=== PATIENT | male | born 1945 | race Caucasian/White ===

== ENCOUNTER 2016-04-16 06:23 | Observation (INO) | payer OTHER, MEDICARE ==
[~2016-04-16] VITALS: Ht 182.9 cm; Wt 110.0 kg
[~2016-04-16 06:23] MED LIST: AMBI10TA PO; BUPR150T3 PO; GABA600T PO; LAMO100 PO; LISI20 PO; METF500 PO; NOVO7030P2 SQ; SERT100 PO; ST JTAB PO; ZOCO40TA PO
[2016-04-16 06:36] VITALS: BP 122/54; PULSE 70; RESP 16; TEMP 98.2; O2SAT 96
[2016-04-16] MEDS ORDERED: SODIUM CHLOR 0.9% 1000 ML INJ 1,000 ML IV ONE (06:43)
[2016-04-16] MEDS ORDERED: SODIUM CHLORIDE 0.9% FLUSH 5 ML FLUSH IVF PRN (06:45)
[2016-04-16] MEDS ORDERED: ASPI81CH CHEW (06:48)
[2016-04-16] MEDS ORDERED: LAMI200T PO (06:48)
[2016-04-16] MEDS ORDERED: SERT-129 PO (06:48)
[2016-04-16] MEDS ORDERED: METF500T PO (06:48)
[2016-04-16] MEDS ORDERED: GABA300C5 PO (06:48)
[2016-04-16] MEDS ORDERED: NIAC500T18 PO (06:48)
[2016-04-16] MEDS ORDERED: SIMV40TA PO (06:48)
[2016-04-16] MEDS ORDERED: LISI-515 PO (06:48)
[2016-04-16] MEDS ORDERED: CHRO1TAB PO (06:48)
[2016-04-16] MEDS ORDERED: VITA60003 PO (06:48)
--- NOTE | 2016-04-16 06:57 | PD ---
HPI Chief Complaint: Syncope/Near-Syncope Time Seen by Provider: 06:41 Travel History International Travel<30 days: No Contact w/Intl Traveler<30days: No Traveled to known affect area: No History of Present Illness HPI The patient is a 70 year old male who presents to the [facility] emergency department with a history of reported syncopal event that occurred prior to arrival. The patient reports that he got up his dog woke him to go out. He reports that he felt well and took the dog out, however on the way back in he began to feel lightheaded, nauseated, and dizzy. The patient reports that he was able to get inside and charted to look at his cell phone to make a call, however he was not able to focus on the phone. He reports that at some point he ended up on the ground and vomited. He does not recall vomiting or getting onto the ground. He denies having any chest pain or shortness of breath. Ambulance services were called and the patient was noted to be cool, pale, and diaphoretic on their arrival. His initial blood pressure was 80s over 50s. His initial blood sugar was 157. The patient had IV access obtained and the patient was started on normal saline a 500 mL bolus was given. The patient's blood pressure came up into the low 100s and the patient reported feeling improved. On arrival, the patient reports feeling well. He denies having any chest pain or shortness of breath. The patient denies any recent history of fevers, cough, congestion, neck pain, chest pain, shortness of breath, abdominal pain, diarrhea, urinary symptoms, or neurologic symptoms. [facility] Past Medical History Narrative Medical The patient's past medical history is significant for diabetes mellitus-insulin- dependent, history of tobacco abuse, history of peripheral arterial disease, hyperlipidemia, benign prostatic hypertrophy, posttraumatic stress disorder, depression, anxiety, diabetic neuropathy, history of a heart valve abnormality that is being monitored by a manager mechanical maintenance. The patient receives his primary care through the [facility]. Cancer: No Diabetes: Yes Patient Takes Glucophage: Yes Hepatitis: No Hiatal Hernia: No Hypertension: Yes Medical other: Yes (BPH) Thyroid Disease: No Tetanus Vaccination: < 5 Years Influenza Vaccination: Yes Past Surgical History Narrative Surgical The patient's past surgical history is unremarkable. Eye Surgery: Yes Oral Surgery: Yes (T&A) Pacemaker: No Social History Alcohol Use: Yes Tobacco Use: Yes (one pack per day) Substance Use: No Allergies-Medications (Allergen,Severity, Reaction): Coded Allergies: No Known Allergies (Unverified , 04/16/16) Reported Meds & Prescriptions Reported Meds & Active Scripts Active Reported Simvastatin 40 Mg Tab 40 Mg PO HS Niacin (Niacinamide) 500 Mg Tab 1 Tab PO DAILY Vitamin E (Vitamin E (Topical)) 100 Unit/Gm Cre 400 Units PO DAILY Chromium 1,000 Mcg Tab 1 Tab PO DAILY Aspirin 81 Mg Chew 81 Mg CHEW DAILY Lisinopril 20 Mg Tab 20 Mg PO DAILY Sertraline (Sertraline HCl) 100 Mg Tab 100 Mg PO DAILY Lamictal (Lamotrigine) 200 Mg Tab 500 Mg PO DAILY Gabapentin 300 Mg Cap 300 Mg PO TID Metformin (Metformin HCl) 500 Mg Tab 500 Mg PO BIDPC With meals Review of Systems Except as stated in HPI: all other systems reviewed are Neg General / Constitutional: No: Fever Eyes: No: Visual changes HENT: No: Headaches Cardiovascular: Positive: Diaphoresis, Syncope, No: Chest Pain or Discomfort Respiratory: No: Shortness of Breath Gastrointestinal: Positive: Nausea, Vomiting, No: Abdominal Pain Genitourinary: No: Dysuria Musculoskeletal: No: Pain Skin: No Rash Neurologic: No: Weakness Psychiatric: No: Depression Endocrine: No: Polydipsia Hematologic/Lymphatic: No: Easy Bruising Physical Exam Narrative General: The patient is a well-developed well-nourished male in no acute distress. Head and Neck exam: Head is normocephalic atraumatic. Eyes: Pupils are equal round and reactive to light. Nose: Midline septum with pink mucous membranes Mouth: Dentition unremarkable. Moist mucus membranes. Posterior oropharynx is not erythematous. No tonsillar hypertrophy. Uvula midline. Airway patent. Neck: No palpable lymphadenopathy. No nuchal rigidity. No thyromegaly. Cardiovascular: Regular rate and rhythm with a 3/6 systolic murmur, no gallops or rubs. No pulse deficit to the extremities on simultaneous palpation of his radial artery and auscultation. Lungs: Clear to auscultation bilaterally. No wheezes, rhonchi, or rales. Abdomen: Soft, without tenderness to palpation in all 4 quadrants of the abdomen. No guarding, rebound, or rigidity. Normal bowel sounds are audible. Extremities: No clubbing, cyanosis, or edema. 2+ pulses in all 4 extremities. Back: No spinous process tenderness to palpation. No costovertebral angle tenderness to palpation. Neurologic Exam: Grossly nonfocal. Skin Exam: No rash noted. Intact skin that is warm and dry. Data Data Last Documented VS Vital Signs Date Time Temp Pulse Resp B/P Pulse Ox O2 Delivery O2 Flow Rate FiO2 04/16/16 06:38 18 Room Air 04/16/16 06:36 98.2 70 122/54 96 Orders Electrocardiogram (04/16/16 06:43) Complete Blood Count With Diff (04/16/16 06:43) Comprehensive Metabolic Panel (04/16/16 06:43) Magnesium (Mg) (04/16/16 06:43) B-Type Natriuretic Peptide (04/16/16 06:43) Ckmb (Isoenzyme) Profile (04/16/16 06:43) Troponin I (04/16/16 06:43) Act Partial Throm Time (Ptt) (04/16/16 06:43) Prothrombin Time / Inr (Pt) (04/16/16 06:43) Urinalysis - C+S If Indicated (04/16/16 06:43) Chest, Single Ap (04/16/16 06:43) Ecg Monitoring (04/16/16 06:43) Iv Access Insert/Monitor (04/16/16 06:43) Oximetry (04/16/16 06:43) Sodium Chloride 0.9% Flush (Ns Flush) (04/16/16 06:45) Sodium Chlor 0.9% 1000 Ml Inj (Ns 1000 M (04/16/16 06:43) Ct Brain W/O Iv Contrast(Rout) (04/16/16 06:57) MDM Medical Decision Making Medical Screen Exam Complete: Yes Emergency Medical Condition: Yes Medical Record Reviewed: Yes Differential Diagnosis Critical aortic stenosis, versus electrolyte abnormality, versus orthostasis, versus vasovagal syncope, versus cardiac arrhythmia Narrative Course During the course of the patients emergency department visit, the patients history, examination, and differential diagnosis were reviewed with the patient. The patient had IV access obtained and blood work sent for analysis. The patient was placed on a assembler seat with oximetry and blood pressure monitoring. An EKG was done on arrival. The patient's EKG shows a sinus rhythm of 63, nonspecific T-wave abnormalities are noted. No acute ST segment elevation. A chest x-ray was ordered. The patient was started on normal saline at 125 mL per hour. A CT scan of the brain was ordered. The patients laboratory studies and radiologic studies are pending. The patient's case will be checked out to the oncoming emergency physician to disposition based on the conclusion of the patient's workup. I anticipate that the patient will be admitted to the hospital for a syncopal event. Diagnosis Primary Impression: Syncope and collapse Additional Impression: Heart murmur Aurelia Luna MD Apr 16, 2016 06:57
[2016-04-16 07:03] LABS: AUTOMATED NEUTROPHIL # 4.1 TH/MM3 (1.8-7.7); BASOPHIL % 0.5 % (0.0-2.0); EOSINOPHIL # 0.2 TH/MM3 (0-0.4); EOSINOPHIL % 2.6 % (0.0-4.0); HEMO FLAGS DIFF FINAL; LYMPH % 40.4 % (9.0-44.0); LYMPHOCYTE # 3.3 TH/MM3 (1.0-4.8); MEAN CELL VOLUME 89.1 FL (80.0-100.0); MEAN CORPUSCULAR HEMOGLOBIN 30.4 PG (27.0-34.0); MEAN CORPUSCULAR HGB CONC 34.1 % (32.0-36.0); NEUT % 49.5 % (16.0-70.0); PLATELET COUNT 153 TH/MM3 (150-450); RED BLOOD COUNT 4.72 MIL/MM3 (4.50-5.90); RED CELL DISTRIBUTION WIDTH 12.6 % (11.6-17.2); WHITE BLOOD COUNT 8.2 TH/MM3 (4.0-11.0)
[2016-04-16 07:15] LABS: APTT (PATIENT) 26.7 SEC (24.3-30.1); PROTHROMBIN TIME - PATIENT 10.5 SEC (9.8-11.6)
--- NOTE | 2016-04-16 07:27 | RADRPT ---
EXAM DATE/TIME: 04/16/2016 06:51 [facility] COMPARISON: CHEST SINGLE AP, August 06, 2015, 12:31. INDICATIONS : Short of breath after syncopal episode. MEDICAL HISTORY : Hypertension. SURGICAL HISTORY : None. ENCOUNTER: Initial ACUITY: 1 day PAIN SCORE: 0/10 LOCATION: Bilateral chest FINDINGS: Portable AP view of the chest demonstrates a normal-sized cardiac silhouette. No effusion, consolidat ion, or pneumothorax is visualized. The bones and soft tissues demonstrate no acute abnormality. CONCLUSION: No acute cardiopulmonary abnormality is identified. Emeterio Palma MD on April 16, 2016 at 7:25 Board Certified Radiologist. This report was verified electronically.
[2016-04-16 07:34] LABS: ALKALINE PHOSPHATASE 89 U/L (45-117); ALT (GPT) 19 U/L (12-78); ANION GAP 9 MEQ/L (5-15); AST (GOT) 22 U/L (15-37); BICARBONATE 25.2 MEQ/L (21.0-32.0); BLOOD UREA NITROGEN 39 MG/DL (7-18); CHLORIDE 104 MEQ/L (98-107); CREATINE KINASE 153 U/L (39-308); GLOMERULAR FILTRATION RATE 40 ML/MIN (>89); MAGNESIUM 1.7 MG/DL (1.5-2.5); SODIUM (NA) 138 MEQ/L (136-145); TOTAL BILIRUBIN ADULT 0.3 MG/DL (0.2-1.0)
[2016-04-16 07:36] LABS: POTASSIUM 4.6 MEQ/L (3.5-5.1)
--- NOTE | 2016-04-16 07:41 | RADRPT ---
EXAM DATE/TIME: 04/16/2016 07:09 [facility] COMPARISON: No previous studies available for comparison. INDICATIONS : Syncope RADIATION DOSE: 56.35 CTDIvol (mGy) MEDICAL HISTORY : Diabetes mellitus type 1. Hypertension. SURGICAL HISTORY : None. ENCOUNTER: Initial ACUITY: 1 day PAIN SCALE: 0/10 LOCATION: cranial TECHNIQUE: Multiple contiguous axial images were obtained of the head. Using automated exposure control and adj ustment of the mA and/or kV according to patient size, radiation dose was kept as low as reasonably a chievable to obtain optimal diagnostic quality images. FINDINGS: CEREBRUM: The ventricles are normal in size. There is mild periventricular white matter low-attenuation and the re is a wedge-shaped focal area of mild to moderate decreased density in the left periventricular whi te matter and left caudate nucleus region measuring 1.5 x 0.9 cm. Otherwise, no evidence of midline s hift, mass lesion, hemorrhage or acute infarction. No extra-axial fluid collections are seen. POSTERIOR FOSSA: The cerebellum and brainstem demonstrate no acute finding. The 4th ventricle is midline. The cerebe llopontine angle is unremarkable. EXTRACRANIAL: The visualized portion of the orbits is intact. SKULL: The calvaria is intact. No evidence of skull fracture. CONCLUSION: 1. There is an age-indeterminate area of low density in the left frontal periventricular white matter , as above. This could represent an area of subacute to chronic ischemia. 2. No other acute finding is identified. There is mild periventricular white matter low-attenuation c haracteristic of chronic microvascular ischemia. Emeterio Palma MD on April 16, 2016 at 7:35 Board Certified Radiologist. This report was verified electronically.
--- NOTE | 2016-04-16 07:46 | PD ---
Physical Exam Date Seen by Provider: Apr 16, 2016 Data Data Last Documented VS Vital Signs Date Time Temp Pulse Resp B/P Pulse Ox O2 Delivery O2 Flow Rate FiO2 04/16/16 06:38 18 Room Air 04/16/16 06:36 98.2 70 122/54 96 Orders Electrocardiogram (04/16/16 06:43) Complete Blood Count With Diff (04/16/16 06:43) Comprehensive Metabolic Panel (04/16/16 06:43) Magnesium (Mg) (04/16/16 06:43) B-Type Natriuretic Peptide (04/16/16 06:43) Ckmb (Isoenzyme) Profile (04/16/16 06:43) Troponin I (04/16/16 06:43) Act Partial Throm Time (Ptt) (04/16/16 06:43) Prothrombin Time / Inr (Pt) (04/16/16 06:43) Urinalysis - C+S If Indicated (04/16/16 06:43) Chest, Single Ap (04/16/16 06:43) Ecg Monitoring (04/16/16 06:43) Iv Access Insert/Monitor (04/16/16 06:43) Oximetry (04/16/16 06:43) Sodium Chloride 0.9% Flush (Ns Flush) (04/16/16 06:45) Sodium Chlor 0.9% 1000 Ml Inj (Ns 1000 M (04/16/16 06:43) Ct Brain W/O Iv Contrast(Rout) (04/16/16 06:57) CKMB (04/16/16 06:45) CKMB% (04/16/16 06:45) Admit Order (Ed Use Only) (04/16/16 08:03) Aspirin (Aspirin) (04/16/16 08:15) Place In Observation (04/16/16 ) Vital Signs (Adult) Q4H (04/16/16 08:04) Activity Oob Ad Mi (04/16/16 08:04) ^ Capacity Manager / Telemetry (04/16/16 08:04) Intake + Output MACY.QSHIFT (04/16/16 08:04) Diet Diabetic (04/16/16 Breakfast) Sodium Chlor 0.9% 1000 Ml Inj (Ns 1000 M (04/16/16 08:04) Sodium Chloride 0.9% Flush (Ns Flush) (04/16/16 08:15) Sodium Chloride 0.9% Flush (Ns Flush) (04/16/16 09:00) Basic Metabolic Panel (Bmp) (04/17/16 06:00) Alcohol (Ethanol) (04/16/16 08:04) Drug Screen, Random Urine (04/16/16 08:04) Troponin I (04/16/16 13:00) Troponin I (04/16/16 19:00) Echo 2d Comp W/Dopp(Routine) (04/16/16 ) Us Carotid Arteries Comp Bilat (04/16/16 ) Labs Laboratory Tests Test 04/16/16 06:45 White Blood Count 8.2 TH/MM3 Red Blood Count 4.72 MIL/MM3 Hemoglobin 14.3 GM/DL Hematocrit 42.0 % Mean Corpuscular Volume 89.1 FL Mean Corpuscular Hemoglobin 30.4 PG Mean Corpuscular Hemoglobin 34.1 % Concent Red Cell Distribution Width 12.6 % Platelet Count 153 TH/MM3 Mean Platelet Volume 8.6 FL Neutrophils (%) (Auto) 49.5 % Lymphocytes (%) (Auto) 40.4 % Monocytes (%) (Auto) 7.0 % Eosinophils (%) (Auto) 2.6 % Basophils (%) (Auto) 0.5 % Neutrophils # (Auto) 4.1 TH/MM3 Lymphocytes # (Auto) 3.3 TH/MM3 Monocytes # (Auto) 0.6 TH/MM3 Eosinophils # (Auto) 0.2 TH/MM3 Basophils # (Auto) 0.0 TH/MM3 CBC Comment DIFF FINAL Differential Comment Prothrombin Time 10.5 SEC Prothromb Time International 1.0 RATIO Ratio Activated Partial 26.7 SEC Thromboplast Time Sodium Level 138 MEQ/L Potassium Level 4.6 MEQ/L Chloride Level 104 MEQ/L Carbon Dioxide Level 25.2 MEQ/L Anion Gap 9 MEQ/L Blood Urea Nitrogen 39 MG/DL Creatinine 1.71 MG/DL Estimat Glomerular Filtration 40 ML/MIN Rate Random Glucose 184 MG/DL Calcium Level 8.8 MG/DL Magnesium Level 1.7 MG/DL Total Bilirubin 0.3 MG/DL Aspartate Amino Transf 22 U/L (AST/SGOT) Alanine Aminotransferase 19 U/L (ALT/SGPT) Alkaline Phosphatase 89 U/L Total Creatine Kinase 153 U/L Creatine Kinase MB 2.1 NG/ML Troponin I LESS THAN 0.02 NG/ML B-Type Natriuretic Peptide 44 PG/ML Total Protein 7.3 GM/DL Albumin 3.7 GM/DL [facility] Supervised Visit with ZULLY: No Interpretation(s) Vital Signs Date Time Temp Pulse Resp B/P Pulse Ox O2 Delivery O2 Flow Rate FiO2 04/16/16 06:38 18 Room Air 04/16/16 06:36 98.2 70 16 122/54 96 Last Impressions Chest X-Ray 04/16/16 0643 Signed Impressions: Service Date/Time: Saturday, April 16, 2016 06:51 - CONCLUSION: No acute cardiopulmonary abnormality is identified. Emeterio Palma MD Laboratory Tests Test 04/16/16 06:45 White Blood Count 8.2 TH/MM3 (4.0-11.0) Red Blood Count 4.72 MIL/MM3 (4.50-5.90) Hemoglobin 14.3 GM/DL (13.0-17.0) Hematocrit 42.0 % (39.0-51.0) Mean Corpuscular Volume 89.1 FL (80.0-100.0) Mean Corpuscular Hemoglobin 30.4 PG (27.0-34.0) Mean Corpuscular Hemoglobin 34.1 % Concent (32.0-36.0) Red Cell Distribution Width 12.6 % (11.6-17.2) Platelet Count 153 TH/MM3 (150-450) Mean Platelet Volume 8.6 FL (7.0-11.0) Neutrophils (%) (Auto) 49.5 % (16.0-70.0) Lymphocytes (%) (Auto) 40.4 % (9.0-44.0) Monocytes (%) (Auto) 7.0 % (0.0-8.0) Eosinophils (%) (Auto) 2.6 % (0.0-4.0) Basophils (%) (Auto) 0.5 % (0.0-2.0) Neutrophils # (Auto) 4.1 TH/MM3 (1.8-7.7) Lymphocytes # (Auto) 3.3 TH/MM3 (1.0-4.8) Monocytes # (Auto) 0.6 TH/MM3 (0-0.9) Eosinophils # (Auto) 0.2 TH/MM3 (0-0.4) Basophils # (Auto) 0.0 TH/MM3 (0-0.2) CBC Comment DIFF FINAL Differential Comment Prothrombin Time 10.5 SEC (9.8-11.6) Prothromb Time International 1.0 RATIO Ratio Activated Partial 26.7 SEC Thromboplast Time (24.3-30.1) Sodium Level 138 MEQ/L (136-145) Potassium Level 4.6 MEQ/L (3.5-5.1) Chloride Level 104 MEQ/L (98-107) Carbon Dioxide Level 25.2 MEQ/L (21.0-32.0) Anion Gap 9 MEQ/L (5-15) Blood Urea Nitrogen 39 MG/DL (7-18) Creatinine 1.71 MG/DL (0.60-1.30) Estimat Glomerular Filtration 40 ML/MIN (>89) Rate Random Glucose 184 MG/DL (74-106) Calcium Level 8.8 MG/DL (8.5-10.1) Magnesium Level 1.7 MG/DL (1.5-2.5) Total Bilirubin 0.3 MG/DL (0.2-1.0) Aspartate Amino Transf 22 U/L (15-37) (AST/SGOT) Alanine Aminotransferase 19 U/L (12-78) (ALT/SGPT) Alkaline Phosphatase 89 U/L (45-117) Total Creatine Kinase 153 U/L (39-308) Troponin I LESS THAN 0.02 NG/ML (0.02-0.05) Total Protein 7.3 GM/DL (6.4-8.2) Albumin 3.7 GM/DL (3.4-5.0) Differential Diagnosis Please see previous providers discharge Narrative Course Pt was signed out to me by Dr. Luna. Patient is a 70-year-old male who presents to emergency room with complaints of syncopal episode. Patient reports that he woke up this morning to let his dog, reports that after he left the dog back into the house, he felt lightheaded and dizzy. Patient reports that he went to his kitchen and landed on the ground, reports that he "passed out" for a few minutes. As per patient's , dog went and woke her up and patient's found patient on the ground. Reports that he was quarrel, pale and diaphoretic. Patient was initially hypotensive by EMS, blood sugars 157, patient reports that he is feeling much better at this time. Patient reports no history of syncopal episodes in past. Reports only history is history of diabetes currently on insulin. Patient reports that he does have a heart murmur, reports no other cardiac history. All labs reviewed, patient with a creatinine 1.7 - this is elevated from baseline - previous cr 1.2 CT the head with an age indeterminate area of low density at the left frontal periventricular white matter, could represent an area of subacute to chronic ischemia. No other acute findings is identified pt well appearing at this time with no c/o. will admit to [facility] case reviewed with dr gonsalez who accepts pt to service Reviewed all labs and all studies as well as all findings with patient and his in detail. Diagnosis Primary Impression: Syncope and collapse Additional Impression: Heart murmur Admitting Information Admitting Physician Requests: Mackenzie Garcia DO Apr 16, 2016 07:46
[2016-04-16 07:49] LABS: CKMB 2.1 NG/ML (0.5-3.6)
[2016-04-16] MEDS ORDERED: DEXTROSE 50% IN WATER 50 ML VIAL(D50) IV PUSH PRN (08:15)
[2016-04-16] MEDS ORDERED: GLUCAGON 1 MG/ML VIAL OTHER PRN (08:15)
[2016-04-16] MEDS ORDERED: ENALAPRILAT 1.25 MG/ML VIAL IV PRN (08:15)
[2016-04-16] MEDS ORDERED: ASPIRIN 325 MG TAB PO ONE (08:15)
[2016-04-16] MEDS ORDERED: SODIUM CHLORIDE 0.9% FLUSH 5 ML FLUSH IV PRN (08:15)
[2016-04-16] MEDS: SODIUM CHLORIDE 0.9% FLUSH 5 ML FLUSH IV SCH ×2 (09:00→19:42)
[2016-04-16] MEDS: VITAMIN E 400 UNIT CAP PO SCH (09:00)
[2016-04-16] MEDS: NIACIN 500 MG EXTENDED RELEASE TAB PO SCH (09:00)
[2016-04-16] MEDS ORDERED: CHROMIUM PO SCH (09:00)
[2016-04-16] MEDS: GABAPENTIN 300 MG CAP PO SCH ×2 (09:18→14:15)
[2016-04-16] MEDS: ASPIRIN 81 MG CHEW TAB CHEW SCH (09:19)
[2016-04-16] MEDS: lamoTRIgine 100 MG TAB PO SCH (09:19)
[2016-04-16] MEDS: SERTRALINE HCL 100 MG TAB PO SCH (09:19)
[2016-04-16] MEDS: SODIUM CHLOR 0.9% 1000 ML INJ 1,000 ML IV SCH ×2 (09:23→18:04)
[2016-04-16 11:00] VITALS: BP 118/58; PULSE 64; RESP 18; O2SAT 98
[2016-04-16] MEDS: INSULIN ASPART SUPPLEMENTAL SCALE SQ SCH ×3 (11:00→22:26)
--- NOTE | 2016-04-16 11:08 | EKG ---
Date Performed: 04/16/2016 Time Performed: 06:34:50 PTAGE: 70 years EKG: Sinus rhythm NONSPECIFIC T-WAVE ABNORMALITY BORDERLINE ECG NO PREVIOUS TRACING DOCTOR: Willie Vera Interpretating Date/Time 04/16/2016 11:07:49
--- NOTE | 2016-04-16 11:40 | RADRPT ---
EXAM DATE/TIME: 04/16/2016 09:52 [facility] COMPARISON: No previous studies available for comparison. INDICATIONS : Syncope. MEDICAL HISTORY : Hypertension. Benign prostatic hyperplasia, (BPH) Diabetes. Peripheral arterial disease. SURGICAL HISTORY : Tonsillectomy. Eye surgery. Penile implant. ENCOUNTER: Initial ACUITY: 1 day PAIN SCORE: 0/10 LOCATION: Bilateral neck PEAK SYSTOLIC VELOCITIES (cm/sec): ICA/CCA RATIO: Right: 0.9 Left: 1.2 ICA: Right: 97 Left: 119 CCA: Right: 106 Left: 100 ECA: Right: 81 Left: 124 VERTEBRAL: Right: 55 antegrade Left: 24 antegrade Elevated flow velocities and ICA/CCA ratios have been found to correlate with increased degrees of vessel stenosis, calculated as percentage of diameter relative to a normal segment of distal ICA/CCA FINDINGS: RIGHT CAROTID: No significant stenosis is visualized. The waveforms are within normal limits. LEFT CAROTID: No significant stenosis is visualized. The waveforms are within normal limits. VERTEBRAL ARTERIES: Antegrade flow is seen in both vertebral arteries. MISCELLANEOUS: None. CONCLUSION: Normal examination for a patient of this age. No significant stenosis is identified. Siomara Ayala MD on April 16, 2016 at 11:36 Board Certified Radiologist. This report was verified electronically.
--- NOTE | 2016-04-16 13:26 | HHI.HP ---
[facility] Admission Diagnosis SYNCOPE Diagnoses: Chief Complaint: Syncope Travel History International Travel<30 Days: No Contact w/Intl Traveler <30 Da: No Traveled to Known Affected Are: No History of Present Illness 70-year-old male with a medical history significant for type 2 diabetes, peripheral artery disease, BPH, and aortic stenosis present to the emergency room after a reported syncopal episode. The patient reports that he got up this morning feeling well and took the dog out. When he returned he started to feel lightheaded and nauseated. He laid himself on the floor. His vision became blurry and he was unable to make a call. His significant other arrived to find him on the floor. He was noted to be very pale. When EMS arrived, he was diaphoretic with a reported blood pressure of 80 over 50s. His initial blood sugar was 157. The patient was treated with IV fluid in the EMS and his blood pressure came up with the systolic in the 100s. Patient currently states that he is feeling well. No longer having lightheadedness or blurred vision. He states that he previously saw a cardiothoracic surgeon in [place] the [place]. He does have a follow-up appointment coming up. Prior to the episode, he denies any chest pain, heart palpitations or shortness of breath. He states that he has been working in a house and has not been drinking water. Review of Systems Constitutional: DENIES: Fever, Chills Endocrine: DENIES: Polyuria Past Family Social History Past Medical History Diabetes Peripheral artery disease. 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 Exposure to agent orange Aortic stenosis Tobacco abuse BPH Past Surgical History Cataract surgery Carpal tunnel surgery Penile implant Reported Medications Reported Meds & Active Scripts Active Reported Simvastatin 40 Mg Tab 40 Mg PO HS Niacin (Niacinamide) 500 Mg Tab 1 Tab PO DAILY Vitamin E (Vitamin E (Topical)) 100 Unit/Gm Cre 400 Units PO DAILY Chromium 1,000 Mcg Tab 1 Tab PO DAILY Aspirin 81 Mg Chew 81 Mg CHEW DAILY Lisinopril 20 Mg Tab 20 Mg PO DAILY Sertraline (Sertraline HCl) 100 Mg Tab 100 Mg PO DAILY Lamictal (Lamotrigine) 200 Mg Tab 500 Mg PO DAILY Gabapentin 300 Mg Cap 300 Mg PO TID Metformin (Metformin HCl) 500 Mg Tab 500 Mg PO BIDPC With meals Allergies: Coded Allergies: No Known Allergies (Unverified , 04/16/16) Family History Father in his 50's from heart attack. Social History Patient admits to smoking 1 pack per day. One sixpack of beer will last him one week. He denies illicit drugs. Physical Exam Vital Signs Vital Signs Date Time Temp Pulse Resp B/P Pulse Ox O2 Delivery O2 Flow Rate FiO2 04/16/16 11:00 64 18 118/58 98 Room Air 04/16/16 06:38 18 Room Air 04/16/16 06:36 98.2 70 16 122/54 96 Physical Exam GENERAL: This is a well-nourished, well-developed patient, in no apparent distress. SKIN: No rashes, ecchymoses or lesions. Cool and dry. HEAD: Atraumatic. Normocephalic. No temporal or scalp tenderness. EYES: Pupils equal round and reactive. Extraocular motions intact. No scleral icterus. No injection or drainage. ENT: Nose without bleeding, purulent drainage or septal hematoma. Throat without erythema, tonsillar hypertrophy or exudate. Uvula midline. Airway patent. NECK: Trachea midline. No JVD or lymphadenopathy. Supple, nontender, no meningeal signs. CARDIOVASCULAR: Regular rate and rhythm. Blowing holosystolic murmur 3/5 RESPIRATORY: Clear to auscultation. Breath sounds equal bilaterally. No wheezes , rales, or rhonchi. GASTROINTESTINAL: Abdomen soft, non-tender, nondistended. No hepato-splenomegaly , or palpable masses. No guarding. MUSCULOSKELETAL: Extremities without clubbing, cyanosis, or edema. No joint tenderness, effusion, or edema noted. No calf tenderness. Negative Homans sign bilaterally. NEUROLOGICAL: Awake and alert. Cranial nerves II through XII intact. Motor and sensory grossly within normal limits. Five out of 5 muscle strength in all muscle groups. Normal speech. Laboratory Laboratory Tests Test 04/16/16 06:45 White Blood Count 8.2 Red Blood Count 4.72 Hemoglobin 14.3 Hematocrit 42.0 Mean Corpuscular Volume 89.1 Mean Corpuscular Hemoglobin 30.4 Mean Corpuscular Hemoglobin 34.1 Concent Red Cell Distribution Width 12.6 Platelet Count 153 Mean Platelet Volume 8.6 Neutrophils (%) (Auto) 49.5 Lymphocytes (%) (Auto) 40.4 Monocytes (%) (Auto) 7.0 Eosinophils (%) (Auto) 2.6 Basophils (%) (Auto) 0.5 Neutrophils # (Auto) 4.1 Lymphocytes # (Auto) 3.3 Monocytes # (Auto) 0.6 Eosinophils # (Auto) 0.2 Basophils # (Auto) 0.0 CBC Comment DIFF FINAL Differential Comment Prothrombin Time 10.5 Prothromb Time International 1.0 Ratio Activated Partial 26.7 Thromboplast Time Sodium Level 138 Potassium Level 4.6 Chloride Level 104 Carbon Dioxide Level 25.2 Anion Gap 9 Blood Urea Nitrogen 39 Creatinine 1.71 Estimat Glomerular Filtration 40 Rate Random Glucose 184 Calcium Level 8.8 Magnesium Level 1.7 Total Bilirubin 0.3 Aspartate Amino Transf 22 (AST/SGOT) Alanine Aminotransferase 19 (ALT/SGPT) Alkaline Phosphatase 89 Total Creatine Kinase 153 Creatine Kinase MB 2.1 Troponin I LESS THAN 0.02 B-Type Natriuretic Peptide 44 Total Protein 7.3 Albumin 3.7 Result Diagram: 04/16/1645 04/16/1645 Imaging Last Impressions Head CT 04/16/16 0657 Signed Impressions: Service Date/Time: Saturday, April 16, 2016 07:09 - CONCLUSION: 1. There is an age-indeterminate area of low density in the left frontal periventricular white matter, as above. This could represent an area of subacute to chronic ischemia. 2. No other acute finding is identified. There is mild periventricular white matter low-attenuation characteristic of chronic microvascular ischemia. Emeterio Palma MD Chest X-Ray 04/16/16 0643 Signed Impressions: Service Date/Time: Saturday, April 16, 2016 06:51 - CONCLUSION: No acute cardiopulmonary abnormality is identified. Emeterio Palma MD Carotid Artery Ultrasound 04/16/16 0000 Signed Impressions: Service Date/Time: Saturday, April 16, 2016 09:52 - CONCLUSION: Normal examination for a patient of this age. No significant stenosis is identified. Siomara Ayala MD Assessment and Plan Problem List: (1) Aortic stenosis ICD Code: I35.0 Status: Acute (2) Syncope and collapse ICD Code: R55 Status: Acute (3) Hyperlipidemia ICD Code: E78.5 Status: Acute (4) Tobacco abuse ICD Code: Z72.0 Status: Acute (5) Heart murmur ICD Code: R01.1 Status: Acute (6) DM (diabetes mellitus) ICD Code: E11.9 Status: Acute Assessment and Plan 70-year-old male admitted with syncope. Patient has a known history of aortic stenosis. Syncope: Suspect this is related to aortic stenosis and dehydration. Arrhythmia not excluded. Patient has a CT surgeon in [place] the [place] who has been monitoring him. EKG with sinus rhythm. - Continue telemetry - Obtain echocardiogram - Serial cardiac enzymes - Check orthostatic vitals. - Continue hydration with IV fluid - If he remains completely asymptomatic depending on what the echocardiogram shows, it may be reasonable to allow him to follow-up with his CT surgeon in [place]. If he has any other symptoms here, that would warrant consultation with CT surgery here. - Patient has been on lisinopril for renal protection due to diabetes. Will hold this medication given the reported hypotension PAD: Patient reports he has occlusion in both femoral arteries. This is being followed by vascular surgery outpatient. He has no new complaints related to that. - Continue aspirin. Diabetes: - Hold metformin. Sliding scale insulin with Accu-Cheks. Peripheral neuropathy: Continue home medications Lynette Nunez MD Apr 16, 2016 13:26
[2016-04-16 15:17] VITALS: BP 132/62; PULSE 68; RESP 18; O2SAT 96
[2016-04-16 17:23] VITALS: BP 140/65; PULSE 66; RESP 18; O2SAT 97
[2016-04-16 19:44] VITALS: BP 140/70; PULSE 84; RESP 16; O2SAT 98
[2016-04-16] MEDS: PRAVASTATIN SOD 80 MG TAB PO SCH (22:26)
[2016-04-16 22:31] VITALS: BP 151/71; PULSE 87; RESP 18; TEMP 98; O2SAT 98
[2016-04-17] VITALS (9 sets, daily range): BP systolic 131–195; BP diastolic 63–86; PULSE 65–78; RESP 16–21; TEMP 97.7–98.8; O2SAT 94–97
[2016-04-17] MEDS: SODIUM CHLOR 0.9% 1000 ML INJ 1,000 ML IV SCH ×2 (05:10→18:14)
[2016-04-17] MEDS: INSULIN ASPART SUPPLEMENTAL SCALE SQ SCH ×4 (07:00→20:37)
[2016-04-17] MEDS: lamoTRIgine 100 MG TAB PO SCH ×2 (07:55→20:38)
[2016-04-17] MEDS: NIACIN 500 MG EXTENDED RELEASE TAB PO SCH (07:55)
[2016-04-17] MEDS: GABAPENTIN 300 MG CAP PO SCH ×2 (07:55→20:37)
[2016-04-17] MEDS: SODIUM CHLORIDE 0.9% FLUSH 5 ML FLUSH IV SCH ×2 (07:56→20:37)
[2016-04-17] MEDS: ASPIRIN 81 MG CHEW TAB CHEW SCH (07:56)
[2016-04-17] MEDS: SERTRALINE HCL 100 MG TAB PO SCH (07:56)
[2016-04-17 07:57] LABS: BICARBONATE 26.3 MEQ/L (21.0-32.0); POTASSIUM 4.5 MEQ/L (3.5-5.1)
[2016-04-17] MEDS: VITAMIN E 400 UNIT CAP PO SCH (07:58)
--- NOTE | 2016-04-17 11:15 | HHI.PR ---
Subjective Remarks Follow-up for near syncope. The patient states that yesterday he got up to let his dog out, and began feeling lightheaded like he was going to pass out. He didn't lose consciousness. No sensation in the room were spinning. He states his blood pressure normally runs around [id number] when he checks it at home. He states about a week ago he was started on prazosin for nightmares, but states he had been on in the past and tolerated it fine. He is followed by a cardiothoracic surgeon [place] the [place] in [place] for moderate aortic stenosis, last echo about 4-6 months ago. He states that he's been asymptomatic since about 2 hours after arriving in the ED. He does report that he does not drink much water. He would like to be discharged today because he has an appointment for follow-up with his vascular surgeon for PAD tomorrow. Objective Vitals Vital Signs Date Time Temp Pulse Resp B/P Pulse Ox O2 Delivery O2 Flow Rate FiO2 04/17/16 07:41 98.2 68 19 195/86 96 04/17/16 05:51 98.0 78 21 140/78 97 04/17/16 02:27 97.7 71 16 131/70 96 04/17/16 01:19 74 04/16/16 22:31 98.0 87 18 151/71 98 04/16/16 19:44 84 16 140/70 98 Room Air 04/16/16 17:23 66 18 140/65 97 Room Air 04/16/16 15:17 68 18 132/62 96 Room Air I/O 04/16/16 04/16/16 04/16/16 04/17/16 04/17/16 04/17/16 07:00 15:00 23:00 07:00 15:00 23:00 Intake Total 100 ml Balance 100 ml Intake Oral 100 ml # Voids 1 Result Diagram: 04/16/16 0645 04/17/16 0659 Imaging Last Impressions Head CT 04/16/1657 Signed Impressions: Service Date/Time: Saturday, April 16, 2016 07:09 - CONCLUSION: 1. There is an age-indeterminate area of low density in the left frontal periventricular white matter, as above. This could represent an area of subacute to chronic ischemia. 2. No other acute finding is identified. There is mild periventricular white matter low-attenuation characteristic of chronic microvascular ischemia. Emeterio Palma MD Chest X-Ray 04/16/16 0643 Signed Impressions: Service Date/Time: Saturday, April 16, 2016 06:51 - CONCLUSION: No acute cardiopulmonary abnormality is identified. Emeterio Palma MD Carotid Artery Ultrasound 04/16/16 0000 Signed Impressions: Service Date/Time: Saturday, April 16, 2016 09:52 - CONCLUSION: Normal examination for a patient of this age. No significant stenosis is identified. Siomara Ayala MD Objective Remarks GENERAL: Well-developed well-nourished. In no acute distress. SKIN: Warm and dry. No lesions noted. HEENT: Normocephalic. Pupils equal and round. Mucous membranes pink and moist. CARDIOVASCULAR: Regular rate and rhythm. Systolic murmur appreciated. RESPIRATORY: No accessory muscle use. Clear to auscultation. Breath sounds equal bilaterally. GASTROINTESTINAL: Abdomen soft, non-tender, nondistended. Bowel sounds x4. MUSCULOSKELETAL: No obvious deformities. No clubbing or cyanosis. No edema. NEUROLOGICAL: Awake and alert. No focal neurological deficits. Moves upper and lower extremities spontaneously. Normal speech. PSYCHIATRIC: Appropriate mood and affect; insight and judgment normal. A/P Problem List: (1) Aortic stenosis ICD Code: I35.0 Status: Acute (2) Syncope and collapse ICD Code: R55 Status: Acute (3) Hyperlipidemia ICD Code: E78.5 Status: Acute (4) Tobacco abuse ICD Code: Z72.0 Status: Acute (5) Heart murmur ICD Code: R01.1 Status: Acute (6) DM (diabetes mellitus) ICD Code: E11.9 Status: Acute Assessment and Plan 70-year-old male admitted with syncope. Patient has a known history of aortic stenosis. Syncope: Possibly secondary to aortic stenosis and dehydration, hypotension, orthostasis. CVA and Arrhythmia are not excluded. Patient has a CT surgeon in [place] the [place] who has been monitoring him. EKG with sinus rhythm. Serial enzymes within normal limits. Head CT with age-indeterminate area in the frontal periventricular white matter, possibly subacute to chronic ischemia. Carotid ultrasound with no significant stenosis. - Check brain MRI and consult neurology for abnormal head CT results - Continue telemetry - Obtain echocardiogram - Check orthostatic vitals. - Continue hydration with IV fluid - Hold lisinopril and prazosin for now and check orthostatics. Resume home meds as tolerated. - Neuro checks Aortic stenosis: Moderate per patient. Possibly contributing to syncope as above. Follows with CT surgery as outpatient.If he remains completely asymptomatic depending on what the echocardiogram shows, it may be reasonable to allow him to follow-up with his CT surgeon in [place]. If he has any other symptoms here, that would warrant consultation with CT surgery here. PAD: Patient reports he has occlusion in both femoral arteries. This is being followed by vascular surgery outpatient. He has no new complaints related to that. - Continue aspirin. Diabetes: - Hold metformin. Sliding scale insulin with Accu-Cheks. Peripheral neuropathy: Continue home medications GEOVANY: Creatinine 1.71, previously 1.21 on 08/06/15. Possibly contributing to syncope as above. Improved to 1.04 with IVF. DVT prophylaxis: Lovenox Written by John Carrera, acting as scribe for Dr. Chandler on 04/17/16 at 11:15. Discharge Planning Follow up results of MRI and echocardiogram. Attending Statement The documentation accurately reflects the work performed [id number] by me, Dr. Chandler on 04/17/16 at 11:15. John Carrera Apr 17, 2016 11:15 Yonatan Chandler MD May 12, 2016 02:09
[2016-04-17] MEDS ORDERED: GADODIAMIDE PF 287 MG/ML 5 ML VIAL (for RAD MRI) IV ONE (12:14)
[2016-04-17] MEDS: ENOXAPARIN SODIUM 40 MG/0.4 ML SYRINGE SQ SCH (12:40)
--- NOTE | 2016-04-17 13:26 | RADRPT ---
EXAM DATE/TIME: 04/17/2016 11:55 [facility] COMPARISON: No previous studies available for comparison. INDICATIONS : Syncope with dizziness. CONTRAST: 22 cc Omniscan (gadodiamide) IV MEDICAL HISTORY : Diabetes mellitus type 2. Hypertension. SURGICAL HISTORY : Penile implant, cataracts and right hand carpal tunnel. ENCOUNTER: Initial ACUITY: 1 day PAIN SCORE: 0/10 LOCATION: Head. TECHNIQUE: Multiplanar, multisequence MRI of the brain was performed both prior to and following the administrat ion of paramagnetic contrast. FINDINGS: CEREBRUM: Mild cerebral atrophy is noted. No evidence of midline shift, mass lesion, hemorrhage or acute infarc tion. No extraaxial fluid collections are seen. Old lacunar infarcts are noted within the left basa l ganglia. The pituitary gland and suprasellar cistern are normal in configuration. WHITE MATTER: Minimal scattered periventricular and subcortical white matter small vessel ischemic changes are note d. POSTERIOR FOSSA: The cerebellum and brainstem are intact. The 4th ventricle is midline. The cerebellopontine angle is unremarkable. The cerebellar tonsils are normal in position. DIFFUSION IMAGING: No focal areas of restricted diffusion are seen. No evidence of acute infarction. EXTRACRANIAL: The visualized portions of the orbits and paranasal sinuses are unremarkable. POST-CONTRAST: No abnormal areas of parenchymal or dural enhancement. No evidence of blood-brain barrier breakdown. CONCLUSION: 1. Old lacunar infarcts are noted within the left basal ganglia. 2. Minimal scattered periventricular and subcortical white matter small vessel ischemic changes bilat erally. 3. Mild cerebral atrophy. 4. No acute infarct, acute hemorrhage, mass effect, midline shift, extra-axial fluid collection or ab normal enhancing mass. Chandler Gilmore MD on April 17, 2016 at 13:20 Board Certified Radiologist. This report was verified electronically.
--- NOTE | 2016-04-17 13:27 | RADRPT ---
EXAM DATE/TIME: 04/17/2016 11:55 [facility] COMPARISON: No previous studies available for comparison. INDICATIONS : Syncope and dizziness. MEDICAL HISTORY : Hypertension. Diabetes mellitus type 2. SURGICAL HISTORY : Right hand carpal tunnel, cataracts and penile implant. ENCOUNTER: Initial ACUITY: 1 day PAIN SCORE: 0/10 LOCATION: Head. Please note a normal MRA of the brain does not entirely exclude the possibility of a small aneurysm, nor the possibility of distal intracranial vessel disease. TECHNIQUE: 3D time of flight MRA was performed. Source images, multiplanar STS MIP, and 3D volume MIP reconstru ctions were reviewed. FINDINGS: There is excellent visualization of the major intracranial arteries out to the second-order branch ve ssels. There is no evidence for aneurysm, vessel truncation or stenosis, and no evidence for vascula r malformation. Patent bilateral posterior communicating arteries are noted. CONCLUSION: 1. Patent bilateral posterior communicating arteries. 2. No significant stenosis, occlusion or aneurysm formation. Chandler Gilmore MD on April 17, 2016 at 13:25 Board Certified Radiologist. This report was verified electronically.
[2016-04-17] MEDS: LISINOPRIL 20 MG TAB PO SCH (18:09)
--- NOTE | 2016-04-17 19:34 | MB ---
cc: CLAYTON LAZO DATE OF CONSULTATION: 04/17/2016 HISTORY OF PRESENT ILLNESS A 70-year-old left-handed man with a history of hypertension, insulin-dependent diabetes, hypercholesterolemia, aortic stenosis, negative stress test in August of last year, takes a Baby Aspirin a day, peripheral vascular disease severe. When he felt lightheaded he had started Prazosin about a week before and yesterday felt lightheaded and had nausea and vomiting. He has evidently had some blurred vision where he could not see his cell phone well, and then he laid on the floor when he felt lightheaded and then evidently was throwing up and maybe having near syncope when his girlfriend sat him up. He denied any chest pain or palpitations. SOCIAL HISTORY He is a smoker. Occasionally has a drink. Lives with his girlfriend. FAMILY HISTORY Negative for cancer, seizure or stroke. REVIEW OF SYSTEMS He denied any history of ND, stent, angioplasty, a-fib, Coumadin, CABG, renal, hepatic or pulmonary disease, thyroid disease, lupus, ulcer, cancer, seizure, stroke. He did not have any true vertigo. Initial blood pressure was 80s/50s and he was very pale. MEDICATIONS AT HOME 1. Simvastatin. 2. Niacin. 3. Vitamin E. 4. Chromium. 5. 81 of Aspirin. 6. Lisinopril. 7. Sertraline 100 a day. 8. Lamictal 500 mg a day. 9. Gabapentin. 10. Metformin. He tells me he has been running low blood pressure about 102-120 when he lays down. PHYSICAL EXAMINATION VITAL SIGNS: Afebrile, 176/74, initially was 80/50s I believe when the ems director came but it has actually been high here now 95/76 today. NECK: There were no carotid vertebral bruits. HEART: Regular rhythm. I did not detect a murmur. NEUROLOGIC: Pupils were equal. Visual arias were full. Extraocular movements intact without nystagmus. Hallpike maneuver was negative bilaterally but he had just a hint of rotatory nystagmus bilaterally but he said he did not feel dizzy, no vertigo with that. There was no drift. He had normal strength in upper and lower extremities bilaterally. DTRs were actually 2 to 3+ symmetric at the knees. Toe was upgoing on the left, downgoing on the right. There was no ankle clonus. Tone was normal throughout. Pinprick is intact. Vibratory sense diminished in the feet bilaterally with diabetic neuropathy. He is not ataxic on [id number]. Gait was steady. Speech was fluent. He is not aphasic. LABORATORY DATA CBC was normal. Basic metabolic profile essentially normal. Troponin was negative. Coags were normal. CBC was normal. IMAGING MRI of the brain I reviewed. It showed some white matter change in the left head of the caudate, small infarct. Carotid ultrasound was negative. MRA [place] of [place]: He looks to be right vertebral dominant, the left vertebral is very small proximally. [place] of [place] appears to be intact. No major MCA disease. No standing blood pressures are documented here. Carotid ultrasound negative. Stress test in August of last year was negative. Echocardiogram is pending. IMPRESSION Probably some hypotensive, possibly some vasovagal component, with his blurred vision however I think it is in also his hyper-reflexivity in the left upgoing toe. I am recommending an MRI of the cervical spine and MRA of the neck to make sure there is no right vertebral artery stenosis more proximally since he is right vertebral dominant, if those look fine then he will be okay to be discharged, and have him check some standing blood pressures here. MD MANSOOR Rodas/NIKKI /5:11 PM /6:53 PM
[2016-04-17] MEDS ORDERED: PILL SPLITTER OTHER PRN (20:30)
[2016-04-17] MEDS: PRAVASTATIN SOD 80 MG TAB PO SCH (20:38)
[2016-04-18] MEDS: SODIUM CHLOR 0.9% 1000 ML INJ 1,000 ML IV SCH (00:04)
[2016-04-18 01:51] VITALS: BP 145/67; PULSE 61; RESP 21; TEMP 98.8; O2SAT 94
[2016-04-18] MEDS: INSULIN ASPART SUPPLEMENTAL SCALE SQ SCH ×3 (06:13→16:00)
[2016-04-18 06:37] VITALS: BP 141/72; PULSE 62; RESP 18; TEMP 97.2; O2SAT 94
--- NOTE | 2016-04-18 07:45 | HHI.PR ---
Subjective Remarks tele Objective Vital Signs Date Time Temp Pulse Resp B/P Pulse Ox O2 Delivery O2 Flow Rate FiO2 04/18/16 06:37 97.2 62 18 141/72 94 04/18/16 01:51 98.8 61 21 145/67 94 04/17/16 20:10 65 04/17/16 19:45 98.7 68 21 147/63 96 04/17/16 19:43 98.8 67 21 157/72 94 04/17/16 16:03 98.3 69 20 176/74 96 04/17/16 11:44 98.8 66 19 150/72 97 I/O 04/17/16 04/17/16 04/17/16 04/18/16 04/18/16 04/18/16 07:00 15:00 23:00 07:00 15:00 23:00 Intake Total 240 ml 480 ml Balance 240 ml 480 ml Intake Oral 240 ml 480 ml # Voids 1 4 2 Result Diagram: 04/16/16 0645 04/17/16 0659 Other Results mra/ c spine mri pend tsh b12 ok -standing bp drop 172/ to 113/ Objective Remarks awake alert nad Assessment and Plan Assessment and Plan imp orthostatic hypotension and htn ok by me to dc if mra neck and mri c spine neg if abn call me today Robert Hernandez MD Apr 18, 2016 07:45
[2016-04-18 08:00] VITALS: BP_SYST 106; BP_SYST 113; BP_SYST 172; BP_DIAS 59; BP_DIAS 69; BP_DIAS 75; PULSE 58; PULSE 63; RESP 20; TEMP 96.8; O2SAT 95
[2016-04-18] MEDS: LISINOPRIL 20 MG TAB PO SCH (09:00)
[2016-04-18] MEDS: NIACIN 500 MG EXTENDED RELEASE TAB PO SCH (09:00)
[2016-04-18] MEDS: ASPIRIN 81 MG CHEW TAB CHEW SCH (09:00)
[2016-04-18] MEDS: GABAPENTIN 300 MG CAP PO SCH (09:00)
[2016-04-18] MEDS: VITAMIN E 400 UNIT CAP PO SCH (09:00)
[2016-04-18] MEDS: SERTRALINE HCL 100 MG TAB PO SCH (09:01)
[2016-04-18] MEDS: lamoTRIgine 100 MG TAB PO SCH (09:01)
[2016-04-18] MEDS: SODIUM CHLORIDE 0.9% FLUSH 5 ML FLUSH IV SCH (09:05)
--- NOTE | 2016-04-18 09:19 | EC ---
Study Study Date:04/17/2016 STUDY CONCLUSIONS SUMMARY - Left ventricle: The cavity size was normal. Wall thickness was normal. Systolic function was normal. The estimated ejection fraction was in the range of 50% to 55%. Wall motion was normal; there were no regional wall motion abnormalities. - Aortic valve: Transvalvular velocity was within the normal range. There was mild to moderate stenosis. Valve area: 0.82cm^2 (Vmax). - Mitral valve: Mild to moderate regurgitation. - Tricuspid valve: Mild regurgitation. - Pulmonic valve: Peak gradient: 16mm Hg (S). If LV function is below 40, please consider prescribing an ACEI or ARB or document rationale for non-use. PROCEDURE DATA STUDY STATUS: Elective. Procedure: Transthoracic echocardiography. Image quality was good. Scanning was performed from the parasternal, apical, and subcostal acoustic windows. Study completion: The patient tolerated the procedure well. Transthoracic echocardiography. M-mode, complete 2D, complete spectral Doppler, and color Doppler. Height: Height: 72in. Weight: Weight: 241.5lb. Body mass index: BMI: 32.8kg/m^2. Body surface area: BSA: 2.31m^2. Patient status: Inpatient. CARDIAC ANATOMY LEFT VENTRICLE: The cavity size was normal. Wall thickness was normal. Systolic function was normal. The estimated ejection fraction was in the range of 50% to 55%. Wall motion was normal; there were no regional wall motion abnormalities. AORTIC VALVE: Poorly visualized. Trileaflet. Doppler: Transvalvular velocity was within the normal range. There was mild to moderate stenosis. No regurgitation. Valve area: 0.82cm^2 (Vmax). Indexed valve area: 0.35cm^2/m^2 (Vmax). Mean gradient: 26mm Hg (S). Peak gradient: 40mm Hg (S). AORTA: Aortic root: The aortic root was normal in size. MITRAL VALVE: Structurally normal valve. Doppler: Transvalvular velocity was within the normal range. There was no evidence for stenosis. Mild to moderate regurgitation. Peak gradient: 2mm Hg (D). LEFT ATRIUM: The atrium was normal in size. RIGHT VENTRICLE: The cavity size was normal. Wall thickness was normal. PULMONIC VALVE: Doppler: Transvalvular velocity was within the normal range. There was no evidence for stenosis. No regurgitation. Peak gradient: 16mm Hg (S). TRICUSPID VALVE: Structurally normal valve. Doppler: Transvalvular velocity was within the normal range. Mild regurgitation. PULMONARY ARTERY: The main pulmonary artery was normal-sized. Systolic pressure was within the normal range. RIGHT ATRIUM: The atrium was normal in size. PERICARDIUM: There was no pericardial effusion. SYSTEMIC VEINS: Inferior vena cava: The vessel was normal in size. Patient weight: 241.5lb _Ejection fraction:_ 65-75% _Fractional shortening:_ 32% up to 5Kg 5-11.5Kg 11.6-22.9Kg 23-45Kg 45-57Kg Aortic Root 7-13 <17 13-22 17-27 17-27 LA diam 6-13 <23 24-38 33-47 37-40 RVID 10-17 7-15 7-15 7-18 8-17 LVIDd 12-22 <32 24-38 33-47 37-40 LVPW 2-4 3-6 5-7 6-8 7-8 IVS 2-4 3-6 5-7 6-8 7-8 BASIC MEASUREMENTS ADULT NORMAL Left ventricle LV internal dimension, ED, chordal 51.7 mm 43-52 level, PLAX LV internal dimension, ES, chordal *41 mm 23-38 level, PLAX Fractional shortening, chordal level, *21 % >29 PLAX LV posterior wall thickness, ED 6.95 mm IVS/LVPW ratio, ED 1.25 <1.3 Ventricular septum Septal thickness, ED 8.7 mm Aortic valve Leaflet separation *14 mm 15-26 BASIC MEASUREMENTS ADULT NORMAL Aortic valve Leaflet separation *14 mm 15-26 Aorta Root diameter, ED *17 mm 20-37 Left atrium Anterior-posterior dimension, ES 35 mm 19-40 Anterior-posterior dimension index, ES 1.52 cm/m^2 <2.2 LA/aortic root ratio 2.06 DOPPLER MEASUREMENTS ADULT NORMAL Main pulmonary artery Pressure, S 8 mm Hg =30 Aortic valve Peak velocity, S 316 cm/s Mean velocity, S 237 cm/s VTI, S 77.8 cm Mean gradient, S 26 mm Hg Peak gradient, S 40 mm Hg Valve area, Vmax 0.82 cm^2 Valve area index, Vmax 0.35 cm^2/m^2 Mitral valve Peak E-wave velocity 72.1 cm/s Peak A-wave velocity 77 cm/s Deceleration time *289 ms 150-230 Peak gradient, D 2 mm Hg Peak E/A ratio 0.9 Maximal regurgitant velocity 242 cm/s Tricuspid valve Regurgitant peak velocity 187 cm/s Peak RV-RA gradient, S 14 mm Hg Maximal regurgitant velocity 187 cm/s Systemic veins Estimated CVP 10 mm Hg Right ventricle RV pressure, S 24 mm Hg <30 Pulmonic valve Peak velocity, S 198 cm/s Peak gradient, S 16 mm Hg LEGEND: Mean values are shown as u=mean value. Asterisk (*) headley values outside specified normal range. Prepared and signed by Chavo Curtis [id number]
--- NOTE | 2016-04-18 11:22 | RADRPT ---
EXAM DATE/TIME: 04/18/2016 10:31 [facility] COMPARISON: No previous studies available for comparison. INDICATIONS : Dizziness. CONTRAST: 20 cc Omniscan (gadodiamide) IV MEDICAL HISTORY : Diabetes mellitus type 2. Hypertension. SURGICAL HISTORY : None applicable. ENCOUNTER: Initial ACUITY: 1 day PAIN SCORE: 0/10 LOCATION: neck Percent stenosis is calculated using the diameter of the stenotic region over the diameter of the nor mal distal internal carotid artery. TECHNIQUE: Bolus infused MRA of the extracranial circulation was performed using a neurovascular coil. Post pro cessing was performed including rotationg subvolume maximum intensity projections of each carotid art april, rotating full volume maximum intensity projections of both carotid arteries, sagittal and swann l sliding thin slab reformations of each carotid artery, and left oblique sliding thin slab reformati on through the aortic arch to include the origin of the arch branch vessels. FINDINGS: AORTIC ARCH: There is a three vessel origin of the great vessels from the aorta. No evidence of ostial narrowing. RIGHT CAROTID: The common carotid artery is intact. The carotid bulb has a normal configuration without ulceration or narrowing. The internal carotid artery lumen is smooth without stenosis. The external carotid ar vic is intact. LEFT CAROTID: Very minimal atherosclerotic irregularity is present without hemodynamically significant stenosis. VERTEBRALS: The vertebral arteries have a symmetric diameter. No stenotic lesions are seen. CONCLUSION: Negative for hemodynamically significant carotid stenosis. Both vertebral arteries are patent. Ankur Edmond MD FACR on April 18, 2016 at 11:17 Board Certified Radiologist. This report was verified electronically.
--- NOTE | 2016-04-18 11:25 | RADRPT ---
EXAM DATE/TIME: 04/18/2016 10:31 [facility] COMPARISON: No previous studies available for comparison. INDICATIONS : Myelopathy. MEDICAL HISTORY : Diabetes mellitus type 2. Hypertension. SURGICAL HISTORY : None applicable. ENCOUNTER: Initial ACUITY: 1 day PAIN SCORE: 0/10 LOCATION: neck TECHNIQUE: Multiplanar, multisequence MRI examination of the cervical spine was performed. FINDINGS: The cervical spine demonstrates loss of the normal cervical lordosis with straightening and grade 1 a nterolisthesis of C7 on T1. There are degenerative disc changes seen at all cervical levels without s ignificant disc protrusion or extrusion. 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 There is bilateral moderate to severe neural foraminal narrowing, left greater than ri ght at these levels. The narrowing of the spinal canal is significant at the level of C5/C6 and again at C7/T1. The cord d emonstrates normal morphology throughout and normal signal. CONCLUSION: Degenerative changes of the cervical spine and grade 1 anterolisthesis of C7 on T1. No evidence of di sc protrusion or extrusion. 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 The cord maintains norm al morphology and signal.. Siomara Ayala MD on April 18, 2016 at 11:16 Board Certified Radiologist. This report was verified electronically.
[2016-04-18 12:00] VITALS: BP 139/68; PULSE 62; RESP 20; TEMP 97.4; O2SAT 95
[2016-04-18] MEDS: ENOXAPARIN SODIUM 40 MG/0.4 ML SYRINGE SQ SCH (12:27)
--- NOTE | 2016-04-18 13:45 | HHI.DCPOC ---
Discharge Care Plan Diagnosis: (1) Orthostatic hypotension (2) Drug-induced hypotension (3) Aortic stenosis (4) DM (diabetes mellitus) (5) Hypertension (6) Hyperlipidemia Goals to Promote Your Health * To prevent worsening of your condition and complications * To maintain your health at the optimal level Directions to Meet Your Goals Take your medications as prescribed Follow your dietary instruction Follow activity as directed Keep your appointments as scheduled Take your immunizations and boosters as scheduled If your symptoms worsen call your PCP, if no PCP go to Urgent Care Center or Emergency Room Smoking is Dangerous to Your Health. Avoid second hand smoke Call the 24-hour hour crisis hotline for domestic abuse at Veronica Dan PA-C Apr 18, 2016 13:45
--- NOTE | 2016-04-18 13:47 | HHI.PR ---
Subjective Remarks Follow up for near syncope. The patient continues to report no further symptoms while in the hospital. Denies any dizziness, lightheadedness, headache, chest pains, shortness of breath, or nausea/vomiting. Orthostatics positive. Discussed again stopping doxazosin which was started 1 week ago. The patient would like to go home today. Objective Vitals Vital Signs Date Time Temp Pulse Resp B/P Pulse Ox O2 Delivery O2 Flow Rate FiO2 04/18/16 08:00 63 04/18/16 08:00 96.8 58 20 172/75 95 106/69 113/59 04/18/16 06:37 97.2 62 18 141/72 94 04/18/16 01:51 98.8 61 21 145/67 94 04/17/16 20:10 65 04/17/16 19:45 98.7 68 21 147/63 96 04/17/16 19:43 98.8 67 21 157/72 94 04/17/16 16:03 98.3 69 20 176/74 96 I/O 04/17/16 04/17/16 04/17/16 04/18/16 04/18/16 04/18/16 07:00 15:00 23:00 07:00 15:00 23:00 Intake Total 240 ml 480 ml Balance 240 ml 480 ml Intake Oral 240 ml 480 ml # Voids 1 4 2 Result Diagram: 04/16/16 0645 04/17/16 0659 Imaging Last Impressions Neck Magnetic Resonance Angiography 04/18/161714 Signed Impressions: Service Date/Time: Monday, April 18, 2016 10:31 - CONCLUSION: Negative for hemodynamically significant carotid stenosis. Both vertebral arteries are patent. Ankur Edmond MD FACR Cervical Spine MRI 04/18/161714 Signed Impressions: Service Date/Time: Monday, April 18, 2016 10:31 - CONCLUSION: Degenerative changes of the cervical spine and grade 1 anterolisthesis of C7 on T1. No evidence of disc protrusion or extrusion. 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 The cord maintains normal morphology and signal.. Siomara Ayala MD Head Magnetic Resonance Angiography 04/17/16 0000 Signed Impressions: Service Date/Time: April 11:55 - CONCLUSION: 1. Patent bilateral posterior communicating arteries. 2. No significant stenosis, occlusion or aneurysm formation. Chandler Gilmore MD Brain MRI 04/17/16 0000 Signed Impressions: Service Date/Time: April 11:55 - CONCLUSION: 1. Old lacunar infarcts are noted within the left basal ganglia. 2. Minimal scattered periventricular and subcortical white matter small vessel ischemic changes bilaterally. 3. Mild cerebral atrophy. 4. No acute infarct, acute hemorrhage , mass effect, midline shift, extra-axial fluid collection or abnormal enhancing mass. Chandler Gilmore MD Head CT 04/16/16 0657 Signed Impressions: Service Date/Time: Saturday, April 16, 2016 07:09 - CONCLUSION: 1. There is an age-indeterminate area of low density in the left frontal periventricular white matter, as above. This could represent an area of subacute to chronic ischemia. 2. No other acute finding is identified. There is mild periventricular white matter low-attenuation characteristic of chronic microvascular ischemia. Emeterio Palma MD Chest X-Ray 04/16/16 0643 Signed Impressions: Service Date/Time: Saturday, April 16, 2016 06:51 - CONCLUSION: No acute cardiopulmonary abnormality is identified. Emeterio Palma MD Carotid Artery Ultrasound 04/16/16 0000 Signed Impressions: Service Date/Time: Saturday, April 16, 2016 09:52 - CONCLUSION: Normal examination for a patient of this age. No significant stenosis is identified. Siomara Ayala MD Objective Remarks GENERAL: Well-nourished, well-developed male patient in [facility]. SKIN: Warm and dry. No rash. HEAD: Normocephalic. Atraumatic. NECK: Supple. Trachea midline. CARDIOVASCULAR: Regular rate and rhythm. S1, S2 noted. Systolic murmur noted. RESPIRATORY: No accessory muscle use. Clear to auscultation. Breath sounds equal bilaterally. GASTROINTESTINAL: Abdomen soft, non-tender, nondistended. Normoactive bowel sounds x4. MUSCULOSKELETAL: No obvious deformities. Extremities without clubbing, cyanosis , or edema. NEUROLOGICAL: Awake and alert. No obvious cranial nerve deficits. Motor grossly within normal limits. 5/5 muscle strength in bilateral upper and lower extremities. Normal speech. PSYCHIATRIC: Appropriate mood and affect; insight and judgment normal. Medications and IVs Current Medications Medications (Trade) Dose Ordered Sig/Jayson Route Start Time Stop Time Status Last Admin (NS 1000 ml Inj) 1,000 ml @ 100 mls/hr Q10H IV 04/16/16 08:04 04/17/16 18:14 (NS Flush) 2 ml UNSCH PRN IV 04/16/16 08:15 (NS Flush) 2 ml BID IV 04/16/16 09:00 04/18/16 09:05 (Aspirin Chew) 81 mg DAILY CHEW 04/16/16 09:00 04/18/16 09:00 (Zoloft) 100 mg DAILY PO 04/16/16 09:00 04/18/16 09:01 (Slo-Niacin) 500 mg DAILY PO 04/16/16 09:00 04/18/16 09:00 (Pravachol) 80 mg HS PO 04/16/16 21:00 04/17/16 20:38 (Vitamin E) 400 units DAILY PO 04/16/16 09:00 04/18/16 09:00 (D50w (Vial) Inj) 25 ml UNSCH PRN IV PUSH 04/16/16 08:15 (Glucagon Inj) 1 mg UNSCH PRN OTHER 04/16/16 08:15 (Vasotec Inj) 1.25 mg Q6H PRN IV 04/16/16 08:15 04/17/16 07:53 (Neurontin) 300 mg BID PO 04/17/16 09:00 04/18/16 09:00 (Lovenox Inj) 40 mg Q24H SQ 04/17/16 12:00 04/18/16 12:27 (Prinivil) 20 mg DAILY PO 04/17/16 15:30 04/18/16 09:00 (LaMICtal) 250 mg Q12HR PO 04/17/16 21:00 04/18/16 09:01 (Pill Splitter) 1 ea UNSCH PRN OTHER 04/17/16 20:30 Urinary Catheter: No Vascular Central Line Catheter: No A/P Problem List: (1) Aortic stenosis ICD Code: I35.0 Status: Acute (2) Syncope and collapse ICD Code: R55 Status: Acute (3) Hyperlipidemia ICD Code: E78.5 Status: Acute (4) Tobacco abuse ICD Code: Z72.0 Status: Acute (5) Heart murmur ICD Code: R01.1 Status: Acute (6) DM (diabetes mellitus) ICD Code: E11.9 Status: Acute Assessment and Plan 70-year-old male admitted with syncope. Patient has a known history of aortic stenosis. Syncope: Suspect secondary to orthostatic hypotension and dehydration, recently started on Doxazosin 1 week ago. Need to eval for possible worsening aortic stenosis vs CVA vs arrhythmia. Treat dehydration. Patient has a CT surgeon in [place] the [place] who has been monitoring him. EKG with sinus rhythm. Serial enzymes within normal limits. - Head CT with age-indeterminate area in the frontal periventricular white matter, possibly subacute to chronic ischemia. - Carotid ultrasound with no significant stenosis. - Brain MRI with old lacunar infarcts, minimal scattered periventricular/ subcortical white matter small vessel ischemic changes, mild atrophy; no acute findings - Head MRA with patent b/l posterior communicating arteries; no stenosis/ occlusion/aneurysm - Neck MRA unremarkable - C-spine MRI with degenerative changes, anterolisthesis of C7 on T1; congenital narrowing of spinal canal C4-T1 contributes to significant spinal canal and neural foraminal narrowing - Consult neurology - Monitor on telemetry, no arrhythmias noted throughout hospitalization - Echocardiogram with EF 50-55%, mild-mod , mild-mod MR, mild TR - Orthostatic vitals positive - Given hydration with IV fluid - Held lisinopril and doxazosin, treat sitting/standing blood pressure only - Neuro checks Aortic stenosis: Moderate per patient. Follows with CT surgery as outpatient. - repeat echo only showing mild-mod - outpatient follow up with CT surgeon in [place]. PAD: Patient reports he has occlusion in both femoral arteries, being followed by vascular surgery outpatient. He has no new complaints related to that. - Continue aspirin. - outpatient f/up with vascular surgeon Diabetes: - Hold metformin. Sliding scale insulin with Accu-Cheks. Peripheral neuropathy: Continue home medications GEOVANY: Creatinine 1.71, previously 1.21 on 08/06/15. Possibly contributing to syncope as above. - Improved to 1.04 with IVF. DVT prophylaxis: Lovenox Written by Veronica Dan, acting as scribe for Dr. Chandler on 04/18/16 at 09:40. Discharge Planning Discharge patient to home Condition on discharge: Improved Heart Healthy Diet as tolerated Ad Mi activity Rx written: no new meds, stop doxazosin Follow-up with primary care physician at the [place] and neurology Attending Statement The documentation accurately reflects the work performed [id number] by me, Dr. Chandler on 04/18/16 at 09:40. Veronica Dan PA-C Apr 18, 2016 13:47 Yonatan Chandler MD Apr 28, 2016 17:41
[2016-04-18] MEDS ORDERED: GADODIAMIDE PF 287 MG/ML 20 ML VIAL (for RAD MRI) IV ONE (16:59)
--- NOTE | 2016-04-18 17:32 | HHI.DS ---
Discharge Summary Admission Date Apr 16, 2016 at 08:06 Discharge Date: Apr 18, 2016 Admitting Diagnosis SYNCOPE (1) Syncope and collapse ICD Code: R55 Diagnosis: Principal (2) Aortic stenosis ICD Code: I35.0 Diagnosis: Secondary (3) Hyperlipidemia ICD Code: E78.5 Diagnosis: Secondary (4) Tobacco abuse ICD Code: Z72.0 (5) Heart murmur ICD Code: R01.1 Diagnosis: Secondary (6) DM (diabetes mellitus) ICD Code: E11.9 Diagnosis: Secondary (7) Hypertension ICD Code: I10 Procedures No procedures performed to the patient. Brief History - From Admission 70-year-old male with a medical history significant for type 2 diabetes, peripheral artery disease, BPH, and aortic stenosis present to the emergency room after a reported syncopal episode. The patient reports that he got up this morning feeling well and took the dog out. When he returned he started to feel lightheaded and nauseated. He laid himself on the floor. His vision became blurry and he was unable to make a call. His significant other arrived to find him on the floor. He was noted to be very pale. When EMS arrived, he was diaphoretic with a reported blood pressure of 80 over 50s. His initial blood sugar was 157. The patient was treated with IV fluid in the EMS and his blood pressure came up with the systolic in the 100s. Patient currently states that he is feeling well. No longer having lightheadedness or blurred vision. He states that he previously saw a cardiothoracic surgeon in [place] to the MD. He does have a follow-up appointment coming up. Prior to the episode, he denies any chest pain, heart palpitations or shortness of breath. He states that he has been working in a house and has not been drinking water. CBC/BMP: 04/16/16 0645 04/17/16 0659 Significant Findings Laboratory Tests Test 04/16/16 04/16/16 04/17/16 04/17/16 06:45 19:20 00:30 06:59 Blood Urea Nitrogen 39 MG/DL (7-18) 27 MG/DL (7-18) Creatinine 1.71 MG/DL (0.60-1.30) Estimat Glomerular Filtration 40 ML/MIN (>89) 71 ML/MIN (>89) Rate Random Glucose 184 MG/DL 155 MG/DL (74-106) (74-106) Troponin I LESS THAN 0.02 LESS THAN 0.02 LESS THAN 0.02 NG/ML NG/ML NG/ML (0.02-0.05) (0.02-0.05) (0.02-0.05) Imaging Last Impressions Neck Magnetic Resonance Angiography 04/18/161714 Signed Impressions: Service Date/Time: Monday, April 18, 2016 10:31 - CONCLUSION: Negative for hemodynamically significant carotid stenosis. Both vertebral arteries are patent. Ankur Edmond MD FACR Cervical Spine MRI 04/18/161714 Signed Impressions: Service Date/Time: Monday, April 18, 2016 10:31 - CONCLUSION: Degenerative changes of the cervical spine and grade 1 anterolisthesis of C7 on T1. No evidence of disc protrusion or extrusion. 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 The cord maintains normal morphology and signal.. Siomara Ayala MD Head Magnetic Resonance Angiography 04/17/16 0000 Signed Impressions: Service Date/Time: April 11:55 - CONCLUSION: 1. Patent bilateral posterior communicating arteries. 2. No significant stenosis, occlusion or aneurysm formation. Chandler Gilmore MD Brain MRI 04/17/16 0000 Signed Impressions: Service Date/Time: April 11:55 - CONCLUSION: 1. Old lacunar infarcts are noted within the left basal ganglia. 2. Minimal scattered periventricular and subcortical white matter small vessel ischemic changes bilaterally. 3. Mild cerebral atrophy. 4. No acute infarct, acute hemorrhage , mass effect, midline shift, extra-axial fluid collection or abnormal enhancing mass. Chandler Gilmore MD Head CT 04/16/16 0657 Signed Impressions: Service Date/Time: Saturday, April 16, 2016 07:09 - CONCLUSION: 1. There is an age-indeterminate area of low density in the left frontal periventricular white matter, as above. This could represent an area of subacute to chronic ischemia. 2. No other acute finding is identified. There is mild periventricular white matter low-attenuation characteristic of chronic microvascular ischemia. Emeterio Palma MD Chest X-Ray 04/16/16 0643 Signed Impressions: Service Date/Time: Saturday, April 16, 2016 06:51 - CONCLUSION: No acute cardiopulmonary abnormality is identified. Emeterio Palma MD Carotid Artery Ultrasound 04/16/16 0000 Signed Impressions: Service Date/Time: Saturday, April 16, 2016 09:52 - CONCLUSION: Normal examination for a patient of this age. No significant stenosis is identified. Siomara Ayala MD PE at Discharge GENERAL: Well-nourished, well-developed male patient in NAD. SKIN: Warm and dry. No rash. HEAD: Normocephalic. Atraumatic. NECK: Supple. Trachea midline. CARDIOVASCULAR: Regular rate and rhythm. S1, S2 noted. Systolic murmur noted. RESPIRATORY: No accessory muscle use. Clear to auscultation. Breath sounds equal bilaterally. GASTROINTESTINAL: Abdomen soft, non-tender, nondistended. Normoactive bowel sounds x4. MUSCULOSKELETAL: No obvious deformities. Extremities without clubbing, cyanosis , or edema. NEUROLOGICAL: Awake and alert. No obvious cranial nerve deficits. Motor grossly within normal limits. 5/5 muscle strength in bilateral upper and lower extremities. Normal speech. PSYCHIATRIC: Appropriate mood and affect; insight and judgment normal. Hospital Course 70-year-old male admitted with syncope. Patient has a known history of aortic stenosis. Syncope: Suspect secondary to orthostatic hypotension and dehydration, recently started on Doxazosin 1 week ago. Need to eval for possible worsening aortic stenosis vs CVA vs arrhythmia. Treat dehydration. Patient has a CT surgeon in [place] to the MD who has been monitoring him. EKG with sinus rhythm. Serial enzymes within normal limits. - Head CT with age-indeterminate area in the frontal periventricular white matter, possibly subacute to chronic ischemia. - Carotid ultrasound with no significant stenosis. - Brain MRI with old lacunar infarcts, minimal scattered periventricular/ subcortical white matter small vessel ischemic changes, mild atrophy; no acute findings - Head MRA with patent b/l posterior communicating arteries; no stenosis/ occlusion/aneurysm - Neck MRA unremarkable - C-spine MRI with degenerative changes, anterolisthesis of C7 on T1; congenital narrowing of spinal canal C4-T1 contributes to significant spinal canal and neural foraminal narrowing - Consult neurology - Monitor on telemetry, no arrhythmias noted throughout hospitalization - Echocardiogram with EF 50-55%, mild-mod , mild-mod MR, mild TR - Orthostatic vitals positive - Given hydration with IV fluid - Held lisinopril and doxazosin, treat sitting/standing blood pressure only, restarted lisinopril - Discussed results of C-spine MRI with Dr. Hernandez who recommended neurosurgery consult, Dr. East reviewed and cleared patient for discharge, no surgery recommended Aortic stenosis: Moderate per patient. Follows with CT surgery as outpatient. - repeat echo only showing mild-mod - outpatient follow up with CT surgeon in [place]. PAD: Patient reports he has occlusion in both femoral arteries, being followed by vascular surgery outpatient. He has no new complaints related to that. - Continue aspirin. - outpatient f/up with vascular surgeon Diabetes: - Hold metformin. Sliding scale insulin with Accu-Cheks. Peripheral neuropathy: Continue home medications GEOVANY: Creatinine 1.71, previously 1.21 on 08/06/15. Possibly contributing to syncope as above. - Improved to 1.04 with IVF. DVT prophylaxis: Lovenox Written by Veronica Dan, acting as scribe for Dr. Chandler on 04/18/16 at 09:40. Discharge Planning Discharge patient to home Condition on discharge: Improved Heart Healthy Diet as tolerated Ad Mi activity Rx written: no new meds, stop doxazosin Follow-up with primary care physician at the MD and neurology Pt Condition on Discharge: Stable Discharge Disposition: Discharge Home Discharge Time: > 30 minutes Discharge Instructions DIET: Follow Instructions for: Heart Healthy Diet, Diabetic Diet Activities you can perform: Regular-No Restrictions Follow up Referrals: Neurology - 2 Weeks with Robert Hernandez MD PCP Follow-up - 1 Week with [facility] Continued Medications: Aspirin (Aspirin) 81 Mg Chew 81 MG CHEW DAILY Ref 0 TAB Chromium (Chromium) 1,000 Mcg Tab 1 TAB PO DAILY Gabapentin (Gabapentin) 300 Mg Cap 300 MG PO TID #90 Ref 0 CAP Lamotrigine (Lamictal) 200 Mg Tab 500 MG PO DAILY Control Seizures #30 Ref 0 TAB Lisinopril (Lisinopril) 20 Mg Tab 20 MG PO DAILY #30 Ref 0 TAB Metformin (Metformin) 500 Mg Tab 500 MG PO BIDPC With meals Blood Sugar Management #60 Ref 0 TAB Niacinamide (Niacin) 500 Mg Tab 1 TAB PO DAILY Sertraline (Sertraline) 100 Mg Tab 100 MG PO DAILY #30 Ref 0 TAB Simvastatin (Simvastatin) 40 Mg Tab 40 MG PO HS Cholesterol Management #30 Ref 0 TAB Vitamin E (Topical) (Vitamin E) 100 Unit/Gm Cre 400 UNITS PO DAILY Additional Information The documentation accurately reflects the work performed [id number]-ce-taad by fl, Dr. Chandler on 04/18/16 at 09:40. Veronica Dan PA-C Apr 18, 2016 17:32 Yonatan Chandler MD Apr 28, 2016 18:00
== END 2016-04-18 17:00 | disposition home or self-care (01) ==
LOC: NEPE 06:23 → NEDA 08:06 → NEDH 12:59 → NEDA 18:30 → NEDH 18:59 → NEPGCP 22:06
PROVIDERS: ADMIT Internal Medicine; ATTEND Internal Medicine
DX: I95.1 Orthostatic hypotension (principal); E86.0 Dehydration; I10 Essential (primary) hypertension; I35.0 Nonrheumatic aortic (valve) stenosis; E78.5 Hyperlipidemia, unspecified; E11.9 Type 2 diabetes mellitus without complications; R06.02 Shortness of breath; E78.00 Pure hypercholesterolemia, unspecified; R94.31 Abnormal electrocardiogram [ECG] [EKG]; I73.9 Peripheral vascular disease, unspecified; F43.10 Post-traumatic stress disorder, unspecified; M43.12 Spondylolisthesis, cervical region; F17.210 Nicotine dependence, cigarettes, uncomplicated; N40.0 Benign prostatic hyperplasia without lower urinary tract symptoms; Z79.4 Long term (current) use of insulin
CPT/HCPCS: 70450; 70544; 70548; 70553; 71010; 72141; 80048; 80053; 80320; 82550; 82552; 82607; 82948; 83735; 83880; 84443; 84484; 85025; 85610; 85730; 93005; 93306; 93880; 96360; 99285; A9579; G0378; J1650; J1815; J7030

== ENCOUNTER 2017-01-03 11:28 | Emergency (ER) | payer MEDICARE, OTHER ==
[~2017-01-03] VITALS: Ht 177.8 cm; Wt 100.0 kg
[~2017-01-03 11:28] MED LIST changes: -AMBI10TA PO; +ASPI81CH CHEW; -BUPR150T3 PO; +CHRO1TAB PO; +GABA300C5 PO; -GABA600T PO; +LAMI200T PO; -LAMO100 PO; +LISI-515 PO; -LISI20 PO; -METF500 PO; +METF500T PO; +NIAC500T18 PO; -NOVO7030P2 SQ; +SERT-129 PO; -SERT100 PO; +SIMV40TA PO; -ST JTAB PO; +VITA60003 PO; -ZOCO40TA PO
[2017-01-03 11:29] VITALS: BP 128/65; PULSE 85; RESP 15; TEMP 98.1; O2SAT 98
--- NOTE | 2017-01-03 12:03 | PD ---
Physical Exam Date Seen by Provider: Jan 03, 2017 Narrative Patient presents for evaluation of a possible head injury. He is on a blood thinner. He fell and hit his head. He is neurologically intact. Data Data Last Documented VS Vital Signs Date Time Temp Pulse Resp B/P (MAP) Pulse Ox O2 Delivery O2 Flow Rate FiO2 01/03/17 11:29 98.1 85 15 128/65 (86) 98 Orders Orders Prothrombin Time / Inr (Pt) (01/03/17 11:56) Ct Brain W/O Iv Contrast(Rout) (01/03/17 11:56) MDM Supervised Visit with ZULLY: Yes Narrative Course I, Dr. Perez, have reviewed the advance practice practitioner's documentation and am in agreement, met with the patient face to face, made the diagnosis, and the medical decision making was done by me. *My assessment and Findings: Awake and alert and fully oriented. Ambulatory. Nonfocal neurological exam. Amy Perez MD Jan 03, 2017 12:03
--- NOTE | 2017-01-03 12:10 | PD ---
HPI Chief Complaint: Medical Clearance Time Seen by Provider: 11:46 Travel History International Travel<30 days: No Contact w/Intl Traveler<30days: No Traveled to known affect area: No History of Present Illness HPI 71-year-old male that presents to the ED for evaluation of head injury. Per patient he accidentally tripped and fell and hit the back of his head on a metal bar. Per patient he did not lose consciousness. Per patient she recently had heart surgery and takes Coumadin. He states that he as well as in the 2.4. He was told to come here and get evaluated if he ever had a head injury secondary to the blood thinner. He comes here to get checked for this. He denies any other medical issues. He states having a mild headache 2 out of 10 on the back of her head. No obvious cuts. No LOC. No fevers chills or sweats. No neck or back pain. No arm or leg pain. Allergies to medication. Has not taken anything for this. Injury occurred less than an hour ago. PFSH Past Medical History Hx Anticoagulant Therapy: Yes (coumadin) Blood Disorders: No Anxiety: Yes Depression: Yes Heart Rhythm Problems: No Cancer: No Cardiovascular Problems: Yes High Cholesterol: Yes Chest Pain: No Congestive Heart Failure: No Diabetes: Yes Endocrine: Yes Genitourinary: Yes (BPH) Hepatitis: No Hiatal Hernia: No Hypertension: Yes Immune Disorder: No Musculoskeletal: No Neurologic: No Psychiatric: Yes Reproductive: Yes (BPH) Respiratory: No Thyroid Disease: No Past Surgical History Eye Surgery: Yes Oral Surgery: Yes (T&A) Pacemaker: No Social History Alcohol Use: Yes Tobacco Use: Yes (one pack per day) Substance Use: No Allergies-Medications (Allergen,Severity, Reaction): Coded Allergies: No Known Allergies (Unverified , 04/16/16) Reported Meds & Prescriptions Reported Meds & Active Scripts Active Reported Simvastatin 40 Mg Tab 40 Mg PO HS Niacin (Niacinamide) 500 Mg Tab 1 Tab PO DAILY Vitamin E (Vitamin E (Topical)) 100 Unit/Gm Cre 400 Units PO DAILY Chromium 1,000 Mcg Tab 1 Tab PO DAILY Aspirin 81 Mg Chew 81 Mg CHEW DAILY Lisinopril 20 Mg Tab 20 Mg PO DAILY Sertraline (Sertraline HCl) 100 Mg Tab 100 Mg PO DAILY Lamictal (Lamotrigine) 200 Mg Tab 500 Mg PO DAILY Gabapentin 300 Mg Cap 300 Mg PO TID Metformin (Metformin HCl) 500 Mg Tab 500 Mg PO BIDPC With meals Review of Systems Except as stated in HPI: all other systems reviewed are Neg Physical Exam Narrative GENERAL: SKIN: Warm and dry. HEAD: Atraumatic. Normocephalic. No obvious sign of injury or cuts to the back of her head. EYES: Pupils equal and round. No scleral icterus. No injection or drainage. ENT: No nasal bleeding or discharge. Mucous membranes pink and moist. Tongue is midline. No uvula deviation. NECK: Trachea midline. No JVD. CARDIOVASCULAR: Regular rate and rhythm. No murmurs, S3, S4. RESPIRATORY: No accessory muscle use. Clear to auscultation. Breath sounds equal bilaterally. GASTROINTESTINAL: Abdomen soft, non-tender, nondistended. Hepatic and splenic margins not palpable. MUSCULOSKELETAL: Extremities without clubbing, cyanosis, or edema. No obvious deformities. Full range of motion of the upper and lower extremities bilaterally. 2+ pulses bilaterally. NEUROLOGICAL: Awake and alert. No obvious cranial nerve deficits. Motor grossly within normal limits. Five out of 5 muscle strength in the arms and legs. Normal speech. PSYCHIATRIC: Appropriate mood and affect; insight and judgment normal. Data Data Last Documented VS Vital Signs Date Time Temp Pulse Resp B/P (MAP) Pulse Ox O2 Delivery O2 Flow Rate FiO2 01/03/17 12:06 18 18 01/03/17 11:29 98.1 128/65 (86) 98 Orders Orders Prothrombin Time / Inr (Pt) (01/03/17 11:56) Ct Brain W/O Iv Contrast(Rout) (01/03/17 11:56) Labs Laboratory Tests Test 01/03/17 12:05 Prothrombin Time 28.8 SEC Prothromb Time International Ratio 2.5 RATIO MDM Medical Decision Making Medical Screen Exam Complete: Yes Emergency Medical Condition: Yes Medical Record Reviewed: Yes Interpretation(s) CT head negative for acute disease INR 2.5 Differential Diagnosis Head injury versus coagulopathy versus head bleed versus head contusion Narrative Course 71-year-old male that presents to the ED for eval head injury. Patient was properly examined and was found to have signs and symptoms consistent with minor head injury. CT was ordered secondary to patient taking and anticoagulation. INR was ordered. Labs and imaging showed no sign of acute disease. Patient was reassured. Patient was told to follow with PCP. Tylenol for pain. See ED worsening symptoms. Diagnosis Primary Impression: Head injury Qualified Codes: S09.90XA - Unspecified injury of head, initial encounter Patient Instructions: General Instructions Additional Instructions: Take Tylenol for pain. Follow with PCP. See ED worsening symptoms. Your INR level today was 2.5. Med/Other Pt SpecificInfo: No Change to Meds Disposition: 01 DISCHARGE HOME Condition: Stable Cruz Wolff Jan 03, 2017 12:10
[2017-01-03 12:51] LABS: INTERNATIONAL NORMALIZED RATIO 2.5 RATIO; PROTHROMBIN TIME - PATIENT 28.8 SEC (9.8-11.6)
--- NOTE | 2017-01-03 12:59 | RADRPT ---
EXAM DATE/TIME: 01/03/2017 12:39 [facility] COMPARISON: MRI BRAIN W & W/O CONTRAST, April 17, 2016, 11:55. MRA BRAIN W/O CONTRAST , April 17, 2016, 11:55. CT BRAIN W/O CONTRAST, April 16, 2016, 7:09. INDICATIONS : Fall, hit back of head. RADIATION DOSE: 41.40 CTDIvol (mGy) MEDICAL HISTORY : Cardiovascular disease. Hypertension. Diabetes mellitus type 2. SURGICAL HISTORY : CABG ENCOUNTER: Initial ACUITY: 1 day PAIN SCALE: 3/10 LOCATION: occipital TECHNIQUE: Multiple contiguous axial images were obtained of the head. Using automated exposure control and adjustment of the mA and/or kV according to patient size, radiation dose was kept as low as reasonably achievable to obtain optimal diagnostic quality images. DICOM format image data is av ailable electronically for review and comparison. FINDINGS: CEREBRUM: Stable focal hypoattenuating lesion identified within the left basal ganglia consistent with old lacunar infarct. The ventricles are normal in size and symmetric. No evidence of mass effec t or midline shift. No intra-axial or extra-axial fluid collection. POSTERIOR FOSSA: The cerebellum and brainstem are intact. The 4th ventricle is midline. The cer ebellopontine angle is unremarkable. EXTRACRANIAL: The visualized portion of the orbits is intact. SKULL: The calvaria is intact. No evidence of skull fracture. CONCLUSION: Stable focal lacunar infarct involving the left basal ganglia. No evidence of acute a bnormality. Siomara Ayala MD on January 03, 2017 at 12:49 Board Certified Radiologist. This report was verified electronically.
== END 2017-01-03 13:29 | disposition home or self-care (01) ==
LOC: NEPC 11:28
DX: S09.90XA Unspecified injury of head, initial encounter (principal); E11.9 Type 2 diabetes mellitus without complications; I10 Essential (primary) hypertension; E78.00 Pure hypercholesterolemia, unspecified; F17.200 Nicotine dependence, unspecified, uncomplicated; W01.0XXA Fall on same level from slipping, tripping and stumbling without subsequent striking against object, initial encounter; Z79.01 Long term (current) use of anticoagulants; Z79.84 Long term (current) use of oral hypoglycemic drugs; Z86.59 Personal history of other mental and behavioral disorders; Z86.79 Personal history of other diseases of the circulatory system; Z87.448 Personal history of other diseases of urinary system
CPT/HCPCS: 70450; 85610; 99284